=== PATIENT | female | born 1980 | race Caucasian/White ===

== ENCOUNTER 2019-12-11 10:26 | Emergency (ER) | payer BC, SELFPAY ==
--- NOTE | 2019-12-11 10:33 | ED.URI ---
HPI - URI/Sore Throat General Chief Complaint: Upper Respiratory Infection Stated Complaint: sore throat Time Seen by Provider: 12/11/19 10:33 Source: patient and RN notes reviewed History of Present Illness HPI Narrative: Patient is a 39-year-old female who presents the urgent care with complaints of a sore throat that started this morning. Patient states it woke her up out of her sleep at 4 AM. States that her daughters father and stepmother were both positive for strep this past week. Also reports of a fever this morning in which she took Tylenol prior to arrival. Denies of any other URI symptoms. No other acute complaints. No acute distress noted. Patient aware of the plan of care. Some parts of this dictation were generated by voice recognition software and may contain typographical and/or grammatical inaccuracies. Related Data Allergies Allergy/AdvReac Type Severity Reaction Status Date / Time No Known Allergies Allergy Verified 12/11/19 10:42 Review of Systems Review of Systems: Narrative: CONSTITUTIONAL: Reports a fever EYES: Denies visual changes, redness, or discharge. ENT: Reports of sore throat CARDIOVASCULAR: Denies chest pain, palpitations, or edema. RESPIRATORY: Denies cough or dyspnea. GASTROINTESTINAL: Denies abdominal pain, nausea, vomiting, or diarrhea. GENITOURINARY: Denies dysuria or hematuria. SKIN: Denies rash or itching. MUSCULOSKELETAL: Denies back pain, joint pain, or myalgia. NEUROLOGIC: Denies headache, numbness, or weakness. All other systems reviewed are negative, except as documented in HPI. [facility] Social History Social History Gender identity (if verbalized by the patient): Female Comments At the time of my signature, I reviewed and agree with the nursing past medical, surgical, social, and family history. There is no relevant family history pertinent to the patient complaint. Exam Narrative: Exam Narrative: GENERAL: This is a well-nourished, well-developed patient, in no apparent distress. HEAD: normocephalic, atraumatic. EYES: PERRL. Sclera clear/white. Vision is grossly intact. EARS: External ears normal, auditory canals clear and without drainage, TMs normal without perforation. Hearing grossly intact. NOSE: External nose normal with no obvious nasal discharge, nares without redness, no rhinorrhea. THROAT: Mucous membranes moist, moderate erythema noted posterior oropharynx with mild postnasal drainage and mild tonsillar edema/erythema NECK: Neck supple, non-tender without lymphadenopathy CARDIOVASCULAR: Regular rate and rhythm without murmurs, gallops, or rubs. RESPIRATORY: Clear to auscultation. Breath sounds equal bilaterally. No wheezes, rales, or rhonchi. SKIN: warm, intact with no suspicious lesions or rash, good texture and turgor. NEURO: awake, alert, and oriented to person, place and time. There were no obvious focal neurologic abnormalities. EXTREMITIES: No clubbing, cyanosis, or edema. Course Vital Signs Vital signs: Vital Signs Temperature 99.2 F 12/11/19 10:39 Pulse Rate 109 H 12/11/19 10:39 Respiratory Rate 20 12/11/19 10:39 Blood Pressure 134/75 12/11/19 10:39 Pulse Oximetry 100 12/11/19 10:39 Temperature 99.2 F 12/11/19 10:39 Pulse Rate 109 H 12/11/19 10:39 Respiratory Rate 20 12/11/19 10:39 Blood Pressure 134/75 12/11/19 10:39 Pulse Oximetry 100 12/11/19 10:39 Reviewed MDM - URI/Sore Throat MDM Narrative Medical decision making narrative: Reviewed lab results with the patient. She is aware that strep swab was positive. Advised the patient to complete oral antibiotic regimen as prescribed. Make sure to eat and drink with the medication. Continue to wear your mask. You will be contagious for up to 24 hours after the start of the antibiotic regimen. Use Tylenol/ibuprofen as needed for fever pain. Increase water intake and rest. Use a humidifier at night. Change her toothbrush within 2 to 3 days. Follow-up with your PC
[2019-12-11 10:39] VITALS: BP 134/75; PULSE 109; RESP 20; TEMP 37.3; O2SAT 100
== END 2019-12-11 10:49 | disposition home or self-care (01) ==
PROVIDERS: Emergency Provider Nurse Practitioner Family
DX: J02.0 Streptococcal pharyngitis (principal)
CPT/HCPCS: 87880; 99203; G0463

== ENCOUNTER 2019-12-24 10:34 | Emergency (ER) | payer BC, SELFPAY ==
[2019-12-24 10:44] VITALS: BP 151/113; PULSE 100; RESP 20; TEMP 36.7; O2SAT 100
--- NOTE | 2019-12-24 11:37 | ED.FEMALEGU ---
HPI - Female Genitourinary General Chief complaint: Urogenital-Female Stated complaint: bacterial infection Source: patient and RN notes reviewed Limitations: no limitations History of Present Illness HPI Narrative: The patient, previously on suboxone , presents with vaginal odor and discharge. Patient states she has 1 to 2-day worsening of several month history of vaginal odor. Symptoms are mild to moderate she relates to new partner-and like when she has had previous bacterial vaginosis. No fever, frequency/dysuria, abdominal pain, LBP, dyspareunia definition . Her last menstrual period was several days ago . Related Data Home Medications Medication Instructions Recorded Confirmed Suboxone 12/24/19 Allergies Allergy/AdvReac Type Severity Reaction Status Date / Time No Known Allergies Allergy Verified 12/11/19 10:42 Review of Systems Review of Systems: Narrative: The patient has been informed that they may have pre-hypertension or Hypertension based on a BP reading in the department. I recommend that the patient call the primary care provider listed on their discharge instructions or a physician of their choice this week to arrange follow up for further evaluation of possible pre-hypertension or Hypertension General/Constitutional: No weight loss,fever Eyes: N0: Redness,discharge Ears/Nose/Throat: No: Epistaxis,ear discharge Respiratory: Denies: Hemoptysis Gastrointestinal: No Vomiting, Bleeding-rectal Skin: No Lumps, eruption Neurologic: No Focal Weakness,Sz Hematologic: Denies: Petechiae/Purpura Psychiatric: No: Suicida ideationl All Other Systems: Reviewed and Negative [facility] Social History Social History Gender identity (if verbalized by the patient): Female Comments At time of signature, agree with nursing past medical, surgical, social and family history. There is no relevant family history pertinent to the presenting complaint Exam Narrative: Exam Narrative: General Appearance: Well appearing, Conjunctiva clear Ears: External ear normal Nose: Normal nose Mouth/Throat: Normal appearing, Normal lips Neck: Supple Respiratory: Airway patent, No respiratory distress Abdomen: Soft, Non-tender, No massess, Musculoskeletal: Full ROM Skin: Warm, Dry Neurological: A&O x3, Normal affect Course Vital Signs Vital signs: Vital Signs Temperature 98.1 F 12/24/19 10:44 Pulse Rate 100 12/24/19 10:44 Respiratory Rate 20 12/24/19 10:44 Blood Pressure 151/113 H 12/24/19 10:44 Pulse Oximetry 100 12/24/19 10:44 Temperature 98.1 F 12/24/19 10:44 Pulse Rate 100 12/24/19 10:44 Respiratory Rate 20 12/24/19 10:44 Blood Pressure 151/113 H 12/24/19 10:44 Pulse Oximetry 100 12/24/19 10:44 MDM - Female Genitourinary Lab Data Labs: Urine Glucose Negative Reference Range: Negative Urine Bilirubin Negative Reference Range: Negative Urine Ketone Negative Reference Range: Negative Urine Specific [place] 1.025 Reference Range:1.001-1.035 Urine Blood Negative Reference Range: Negative * * Urine pH 6.0 Reference Range: 5.0-9.0 Urine Protein Negative Reference Range: Negative Urine Urobilinogen 0.2 Reference Range: 0.2-1.0 Urine Nitrate Negative Reference Range: Negative Urine Leukocyte
== END 2019-12-24 11:21 | disposition home or self-care (01) ==
PROVIDERS: Emergency Provider Emergency Medicine
DX: N76.0 Acute vaginitis (principal)
CPT/HCPCS: 81003; 87491; 87591; 87661; 99214; G0463